=== PATIENT | male | born 1995 | race Caucasian/White ===

== ENCOUNTER 2021-09-04 13:45 | Emergency (ER) | payer OTHER ==
[2021-09-05] MEDS ORDERED: PREDNISONE20 M1 PO (19:07)
[2021-09-05] MEDS ORDERED: PROVENTIL HFA6.7 GM INH (19:07)
== END 2021-09-04 13:58 | disposition left against medical advice (07) ==
LOC: ED 13:45
DX: R05.9 Cough, unspecified (principal); R50.9 Fever, unspecified; R11.10 Vomiting, unspecified; Z53.21 Procedure and treatment not carried out due to patient leaving prior to being seen by health care provider

== ENCOUNTER 2021-09-05 14:49 | Emergency (ER) | payer OTHER ==
[~2021-09-05] VITALS: Ht 180.3 cm; Wt 108.9 kg
[2021-09-05] MEDS ORDERED: PROVENTIL HFA6.7 GM INH (19:07)
[2021-09-05] MEDS ORDERED: PREDNISONE20 M1 PO (19:07)
== END 2021-09-05 19:07 | disposition home or self-care (01) ==
LOC: ED 14:49
DX: U07.1 COVID-19 (principal)

== ENCOUNTER 2024-06-21 15:11 | Inpatient (IN) | payer SELFPAY ==
[~2024-06-21] VITALS: Ht 180.3 cm; Wt 117.9 kg
[~2024-06-21 15:11] MED LIST: PERFLUTREN PROTEIN-A MICROSPHR 3 ML VIAL IV ONE; PREDNISONE20 M1 PO; PROVENTIL HFA6.7 GM INH
[2024-06-21 15:16] VITALS: BP 152/104
[2024-06-21 15:36] LABS: BASO # 0.1 10*3/uL (0.0-0.1); BASO % 0.7 % (0.0-1.0); EOS % 0.3 % (1.0-4.0); HEMATOCRIT 39.4 % (42.0-52.0); LYMPH # 1.8 10*3/uL (1.3-4.4); LYMPH % 19.3 % (27.0-41.0); MEAN CELL VOLUME 87.2 fl (80.0-94.0); MEAN CORPUSCULAR HGB 27.2 pg (27.0-31.0); MEAN CORPUSCULAR HGB CONC 31.2 g/dl (33.0-37.0); MEAN PLATELET VOLUME 9.7 fl (9.6-12.3); MONO # 0.5 10*3/uL (0.1-1.0); MONO % 5.5 % (3.0-9.0); NEUT # 6.7 10*3/uL (2.3-7.9); NEUT % 73.9 % (47.0-73.0); PLATELET COUNT AUTOMATED 411 10*3/uL (130-400); RED BLOOD COUNT 4.52 10*6/uL (4.50-5.90); RED CELL DISTRI WIDTH 14.5 % (0-14.5); WHITE BLOOD COUNT 9.1 10*3/uL (4.8-10.8)
[2024-06-21 15:56] LABS: BUN 9 mg/dl (9-23); CHLORIDE 104 mmol/L (98-107); POTASSIUM 3.8 mmol/L (3.4-5.1)
[2024-06-21] MEDS ORDERED: BUMETANIDE 1 MG/4 ML VIAL IV ONE (16:40)
[2024-06-21 17:04] VITALS: BP 130/97
[2024-06-21] MEDS ORDERED: BISACODYL 5 MG TAB PO PRN (17:20)
[2024-06-21] MEDS ORDERED: TEMAZEPAM 15 MG CAP PO PRN (17:20)
[2024-06-21] MEDS ORDERED: SODIUM CHLORIDE 0.9% 100 ML BAG IV ONE (17:20)
[2024-06-21] MEDS ORDERED: BISACODYL 10 MG SUPP R PRN (17:20)
[2024-06-21] MEDS ORDERED: ACETAMINOPHEN 650 MG SUPP R PRN (17:20)
[2024-06-21] MEDS ORDERED: ACETAMINOPHEN 325 MG TAB PO PRN (17:20)
[2024-06-21] MEDS ORDERED: Ondansetron Hydrochloride 4 MG/2 ML VIAL IV PRN (17:20)
[2024-06-21] MEDS ORDERED: IOHEXOL 350 MG/ML 100 ML VIAL IV ONE (17:20)
[2024-06-21] MEDS ORDERED: Magnesium Hydroxide 30 ML UDC PO PRN (17:20)
[2024-06-21 21:14] VITALS: BP 137/95
[2024-06-21] MEDS ORDERED: AZITHROMYCIN 250 ML IV SCH (22:00)
[2024-06-21] MEDS ORDERED: Ceftriaxone Sodium 10 ML IV SCH (23:00)
[2024-06-22] MEDS ORDERED: Pantoprazole Sodium 40 MG TAB PO SCH (06:00)
[2024-06-22 06:18] LABS: BASO # 0.1 10*3/uL (0.0-0.1); BASO % 0.6 % (0.0-1.0); EOS % 0.3 % (1.0-4.0); HEMATOCRIT 39.7 % (42.0-52.0); LYMPH # 2.3 10*3/uL (1.3-4.4); LYMPH % 23.7 % (27.0-41.0); MEAN CELL VOLUME 87.8 fl (80.0-94.0); MEAN CORPUSCULAR HGB 27.2 pg (27.0-31.0); MEAN PLATELET VOLUME 10.1 fl (9.6-12.3); MONO # 0.8 10*3/uL (0.1-1.0); MONO % 8.4 % (3.0-9.0); NEUT # 6.4 10*3/uL (2.3-7.9); NEUT % 66.7 % (47.0-73.0); PLATELET COUNT AUTOMATED 391 10*3/uL (130-400); RED BLOOD COUNT 4.52 10*6/uL (4.50-5.90); RED CELL DISTRI WIDTH 14.6 % (0-14.5); WHITE BLOOD COUNT 9.6 10*3/uL (4.8-10.8)
[2024-06-22 06:27] LABS: ACT PARTIAL THROMBO TIME 25.8 SECONDS (20.0-32.1)
[2024-06-22 06:28] VITALS: BP 135/75
[2024-06-22 06:57] LABS: ALKALINE PHOSPHATASE 89 U/L (46-116); BUN 9 mg/dl (9-23); CHLORIDE 106 mmol/L (98-107); CHOLESTEROL 108 mg/dL (<200); FREE T4 1.21 ng/dl (0.89-1.76); POTASSIUM 3.8 mmol/L (3.4-5.1); SGPT/ALT 22 U/L (5-49); TOTAL PROTEIN 6.7 gm/dL (6.0-8.0); TRIGLYCERIDES 81 mg/dl (<150)
[2024-06-22 07:11] LABS: LDL CHOLESTEROL 74 mg/dL (9-159)
[2024-06-22 07:37] LABS: VITAMIN D, 25-HYDROXY 15.9 ng/mL (30-100)
[2024-06-22 08:00] VITALS: BP 150/80
[2024-06-22] MEDS ORDERED: FUROSEMIDE 20 MG/2 ML VIAL IV SCH (10:00)
[2024-06-22] MEDS ORDERED: Enoxaparin Sodium 40 MG/0.4 ML SYR SC SCH (10:00)
[2024-06-22] MEDS ORDERED: METOPROLOL SUCCINATE XR 50 MG TAB PO SCH (11:10)
[2024-06-22] MEDS ORDERED: SACUBITRIL/VALSARTAN 24 MG-26 MG TABLET PO SCH (11:10)
[2024-06-22 12:00] VITALS: BP 153/105
[2024-06-22 17:51] VITALS: BP 136/98
[2024-06-22 19:44] VITALS: BP 120/81
[2024-06-23 01:56] VITALS: BP 118/83
[2024-06-23 06:18] VITALS: BP 128/89
[2024-06-23 06:56] LABS: BUN 8 mg/dl (9-23); CHLORIDE 107 mmol/L (98-107); POTASSIUM 4.2 mmol/L (3.4-5.1)
[2024-06-23 06:57] LABS: BASO # 0.1 10*3/uL (0.0-0.1); BASO % 0.9 % (0.0-1.0); EOS # 0.1 10*3/uL (0.0-0.4); EOS % 0.7 % (1.0-4.0); HEMATOCRIT 41.5 % (42.0-52.0); LYMPH # 2.5 10*3/uL (1.3-4.4); LYMPH % 29.2 % (27.0-41.0); MEAN CELL VOLUME 88.5 fl (80.0-94.0); MEAN CORPUSCULAR HGB 26.9 pg (27.0-31.0); MEAN CORPUSCULAR HGB CONC 30.4 g/dl (33.0-37.0); MEAN PLATELET VOLUME 10.1 fl (9.6-12.3); MONO # 0.7 10*3/uL (0.1-1.0); MONO % 7.6 % (3.0-9.0); NEUT # 5.3 10*3/uL (2.3-7.9); NEUT % 61.3 % (47.0-73.0); PLATELET COUNT AUTOMATED 435 10*3/uL (130-400); RED BLOOD COUNT 4.69 10*6/uL (4.50-5.90); RED CELL DISTRI WIDTH 14.6 % (0-14.5); WHITE BLOOD COUNT 8.7 10*3/uL (4.8-10.8)
[2024-06-23 09:00] VITALS: BP 142/103
[2024-06-23] MEDS ORDERED: FUROSEMIDE 40 MG/4 ML VIAL IV SCH (10:00)
[2024-06-23] MEDS ORDERED: Cholecalciferol 2,000 UNIT TABLET (50 MCG) PO SCH (10:00)
[2024-06-23] MEDS ORDERED: JARDIANCE10 MG PO (14:24)
[2024-06-23] MEDS ORDERED: VITAMIN D350 MCG PO (14:24)
[2024-06-23] MEDS ORDERED: ZITHROMAX250 MG PO (14:24)
[2024-06-23] MEDS ORDERED: LASIX20 MG PO (14:24)
[2024-06-23] MEDS ORDERED: METOPROLOL SUCC50 M1 PO (14:24)
[2024-06-23] MEDS ORDERED: OMNICEF300 MG PO (14:24)
[2024-06-23] MEDS ORDERED: ENTRESTO 24 MG1 EACH PO (14:24)
== END 2024-06-23 15:26 | disposition home or self-care (01) | DRG 177 ==
LOC: ED 15:11 → EDHOLD 16:41
PROVIDERS: Internal Medicine; Nurse Practitioner Family; ADMIT Internal Medicine; ATTEND Internal Medicine
DX: J15.69 Pneumonia due to other Gram-negative bacteria (principal); I50.21 Acute systolic (congestive) heart failure; E87.1 Hypo-osmolality and hyponatremia; I43 Cardiomyopathy in diseases classified elsewhere; D64.9 Anemia, unspecified; D75.839 Thrombocytosis, unspecified; R73.9 Hyperglycemia, unspecified; I27.20 Pulmonary hypertension, unspecified; I08.1 Rheumatic disorders of both mitral and tricuspid valves; E66.09 Other obesity due to excess calories

== ENCOUNTER 2024-07-05 04:13 | Inpatient (IN) | payer MEDICAID ==
[~2024-07-05] VITALS: Ht 180.3 cm; Wt 142.9 kg
[~2024-07-05 04:13] MED LIST changes: +ENTRESTO 24 MG1 EACH PO; +JARDIANCE10 MG PO; +LASIX20 MG PO; +METOPROLOL SUCC50 M1 PO; +OMNICEF300 MG PO; -PERFLUTREN PROTEIN-A MICROSPHR 3 ML VIAL IV ONE; +VITAMIN D350 MCG PO; +ZITHROMAX250 MG PO
[2024-07-05 04:23] VITALS: BP 106/72
[2024-07-05 04:51] LABS: BASO # 0.1 10*3/uL (0.0-0.1); BASO % 0.7 % (0.0-1.0); EOS # 0.3 10*3/uL (0.0-0.4); EOS % 3.2 % (1.0-4.0); HEMATOCRIT 41.9 % (42.0-52.0); LYMPH # 2.4 10*3/uL (1.3-4.4); LYMPH % 28.8 % (27.0-41.0); MEAN CORPUSCULAR HGB 26.7 pg (27.0-31.0); MEAN CORPUSCULAR HGB CONC 30.3 g/dl (33.0-37.0); MONO # 0.6 10*3/uL (0.1-1.0); MONO % 6.6 % (3.0-9.0); NEUT % 60.6 % (47.0-73.0); PLATELET COUNT AUTOMATED 292 10*3/uL (130-400); RED BLOOD COUNT 4.76 10*6/uL (4.50-5.90); RED CELL DISTRI WIDTH 14.4 % (0-14.5); WHITE BLOOD COUNT 8.3 10*3/uL (4.8-10.8)
[2024-07-05 05:10] LABS: ACT PARTIAL THROMBO TIME 25.3 SECONDS (20.0-32.1)
[2024-07-05 05:14] LABS: ALKALINE PHOSPHATASE 86 U/L (46-116); BUN 15 mg/dl (9-23); CHLORIDE 105 mmol/L (98-107); POTASSIUM 4.1 mmol/L (3.4-5.1); SGPT/ALT 52 U/L (5-49); TOTAL PROTEIN 6.9 gm/dL (6.0-8.0)
[2024-07-05 05:17] LABS: ETHYL ALCOHOL < 3.0 mg/dl (<3)
[2024-07-05] MEDS ORDERED: ASPIRIN, CHEWABLE 81 MG TAB PO ONE (05:20)
[2024-07-05] MEDS ORDERED: HEPARIN SODIUM 25,000 UNITS/250 ML BAG IV SCH (05:20)
[2024-07-05] MEDS ORDERED: ATORVASTATIN CALCIUM 80 MG TAB PO ONE (05:25)
[2024-07-05] MEDS ORDERED: SODIUM CHLORIDE 0.9% 100 ML BAG IV ONE (05:40)
[2024-07-05] MEDS ORDERED: IOHEXOL 350 MG/ML 100 ML VIAL IV ONE ×2 (05:40→05:53)
[2024-07-05] MEDS ORDERED: SODIUM CHLORIDE 0.9% 100 ML IV ONE (05:53)
[2024-07-05 07:37] VITALS: BP 111/76
[2024-07-05 08:05] LABS: BILIRUBIN Negative (Negative); BLOOD Negative (Negative); CLARITY Clear (Clear); COLOR Yellow (Yellow); GLUCOSE 3+ (Negative); KETONE Negative (Negative); LEUKO ESTERASE Negative (Negative); NITRITE Negative (Negative); PH 5.5 (4.5-8.0); SPECIFIC GRAVITY 1.025 (1.001-1.030); UROBILINOGEN 0.2 E.U./dl (0.0-1.0)
[2024-07-05 08:12] LABS: URINE AMPHETAMINES Negative (1000ng/ml); URINE BARBITURATES Negative (200ng/ml); URINE BENZODIAZEPINES Negative (200ng/ml); URINE CANNABINOIDS (THC) Negative (50ng/ml); URINE COCAINE Negative (300ng/ml); URINE METHADONE Negative (300ng/ml); URINE OPIATES Negative (300ng/ml); URINE PHENCYCLIDINE Negative (25ng/ml)
[2024-07-05 08:35] VITALS: BP 108/71
[2024-07-05 08:38] LABS: BACTERIA TRACE; EPITHELIAL CELLS 0-2; WBC 0-2 wbc/hpf (0-5)
[2024-07-05] MEDS ORDERED: Ceftriaxone Sodium 1 GM/10 ML SYR IV ONE (09:10)
[2024-07-05] MEDS ORDERED: AZITHROMYCIN 250 MG TAB PO ONE (09:10)
[2024-07-05 09:42] VITALS: BP 101/80
[2024-07-05] MEDS ORDERED: EMPAGLIFLOZIN 10 MG TABLET PO SCH (10:00)
[2024-07-05] MEDS ORDERED: FUROSEMIDE 20 MG TAB PO SCH (10:00)
[2024-07-05] MEDS ORDERED: SACUBITRIL/VALSARTAN 24 MG-26 MG TABLET PO SCH (10:00)
[2024-07-05] MEDS ORDERED: METOPROLOL SUCCINATE XR 50 MG TAB PO SCH (10:00)
[2024-07-05] MEDS ORDERED: Cholecalciferol 2,000 UNIT TABLET (50 MCG) PO SCH (10:00)
[2024-07-05] MEDS ORDERED: Albuterol Sulf/Ipratropium 3 ML VIAL NEB SCH (10:47)
[2024-07-05 10:57] VITALS: BP 100/80
[2024-07-05] MEDS ORDERED: MORPHINE Sulfate 2 MG/ML SYR IV PRN (11:15)
[2024-07-05] MEDS ORDERED: Ondansetron Hydrochloride 4 MG/2 ML VIAL IV PRN (11:15)
[2024-07-05 11:30] VITALS: BP 111/76
[2024-07-05] MEDS ORDERED: GUAIFENESIN 600 MG TAB ER PO SCH (22:00)
== END 2024-07-05 12:23 | disposition left against medical advice (07) | DRG 280 ==
LOC: ED 04:13 → EDHOLD 09:18
PROVIDERS: Emergency Medicine; Internal Medicine; ADMIT Internal Medicine; ATTEND Internal Medicine
DX: I21.4 Non-ST elevation (NSTEMI) myocardial infarction (principal); J18.9 Pneumonia, unspecified organism; I50.22 Chronic systolic (congestive) heart failure; E66.9 Obesity, unspecified; R74.01 Elevation of levels of liver transaminase levels; R73.9 Hyperglycemia, unspecified; Z53.29 Procedure and treatment not carried out because of patient's decision for other reasons; Z68.41 Body mass index [BMI] 40.0-44.9, adult

== ENCOUNTER → 2024-09-14 | Outpatient (CLI) | payer OTHER ==
[~2024-09-14] MED LIST changes: +PERFLUTREN PROTEIN-A MICROSPHR 3 ML VIAL IV ONE
== END | disposition home or self-care (01) ==
LOC: CARD 09:11
PROVIDERS: ATTEND Internal Medicine Cardiovascular Disease
DX: I34.0 Nonrheumatic mitral (valve) insufficiency (principal); I42.9 Cardiomyopathy, unspecified

== ENCOUNTER → 2025-06-26 | Outpatient (CLI) | payer OTHER ==
[~2025-06-26] MED LIST changes: -PERFLUTREN PROTEIN-A MICROSPHR 3 ML VIAL IV ONE
[2025-06-26 10:23] LABS: BUN 13 mg/dl (9-23)
== END | disposition home or self-care (01) ==
LOC: LAB 09:44
PROVIDERS: ATTEND Nurse Practitioner Adult Health
DX: I50.20 Unspecified systolic (congestive) heart failure (principal)